=== PATIENT | female | born 1970 | race African-American/Black ===

== ENCOUNTER 2019-08-23 17:53 | Emergency (ER) | payer BC ==
--- NOTE | 2019-08-23 18:35 | ER Document Report ---
ED Medical Screen (RME) - General Chief Complaint: Rectal Pain Stated Complaint: RECTAL PAIN Time Seen by Provider: 08/23/19 18:33 Mode of Arrival: Ambulatory Information source: Patient Notes: 48-year-old female presented to ED for complaint of rectal pain. She states she had a colonoscopy yesterday because she had blood blood in her stools and hemorrhoids. She states they told her that she would be okay by this morning but she has taken ibuprofen with no relief to her rectal pain. She states Dr. Leiva did the colonoscopy yesterday. She states she has a history of removal of gallbladder C-sections and bronchitis. She states she has no other medical history. She states she does not have any bleeding from her stool that she knows of right now but she is on her menstrual cycle so she would be able to tell. I have greeted and performed a rapid initial assessment of this patient. A comprehensive ED assessment and evaluation of the patient, analysis of test results and completion of medical decision making process will be conducted by an additional ED providers. - Related Data Allergies/Adverse Reactions: No Known Allergies Allergy (Unverified 08/23/19 18:29) Physical Exam - Vital signs Vitals: Temp Pulse Resp BP Pulse Ox 98.7 F 110 H 18 186/118 H 98 08/23/19 17:59 08/23/19 17:59 08/23/19 17:59 08/23/19 17:59 08/23/19 17:59 Course - Vital Signs Vital signs: Temp Pulse Resp BP Pulse Ox 98.7 F 110 H 18 186/118 H 98 08/23/19 18:29 08/23/19 17:59 08/23/19 17:59 08/23/19 17:59 08/23/19 17:59
[2019-08-23 19:05] LABS: ABSOLUTE BASOPHILS # (AUTO) 0.1 10^3/uL (0.0-0.2); ABSOLUTE EOSINOPHILS # (AUTO) 0.2 10^3/uL (0.0-0.6); ABSOLUTE LYMPHOCYTES (AUTO) 2.3 10^3/uL (0.5-4.7); ABSOLUTE MONOCYTES (AUTO) 0.8 10^3/uL (0.1-1.4); ABSOLUTE NEUT (AUTO) 7.2 10^3/uL (1.7-8.2); BASOPHILS % (AUTO) 0.6 % (0-2); EOSINOPHILS % (AUTO) 1.8 % (0-6); HEMATOCRIT 38.1 % (36.0-47.0); HEMOGLOBIN 12.9 g/dL (12.0-15.5); LYMPHOCYTES % (AUTO) 21.7 % (13-45); MEAN CORPUSCULAR HEMOGLOBIN 26.2 pg (27.0-33.4); MEAN CORPUSCULAR VOLUME 77 fl (80-97); MONOCYTES % (AUTO) 7.3 % (3-13); PLATELET COUNT 311 10^3/uL (150-450); RED BLOOD COUNT 4.94 10^6/uL (3.72-5.28); RED CELL DISTRIBUTION WIDTH 14.7 % (11.5-14.0); SEGMENTED NEUTROPHILS % (AUTO) 68.6 % (42-78); TOTAL CELLS COUNTED % (AUTO) 100 %; WHITE BLOOD COUNT 10.5 10^3/uL (4.0-10.5)
[2019-08-23 19:28] LABS: ALBUMIN 4.5 g/dL (3.5-5.0); ALKALINE PHOSPHATASE 64 U/L (38-126); ANION GAP 8 (5-19); ASPARTATE AMINO TRANSFERASE 27 U/L (14-36); BILIRUBIN,TOTAL 0.4 mg/dL (0.2-1.3); BLOOD UREA NITROGEN 13 mg/dL (7-20); CARBON DIOXIDE 28 mmol/L (22-30); CHLORIDE 103 mmol/L (98-107); GLUCOSE 112 mg/dL (75-110); POTASSIUM 4.3 mmol/L (3.6-5.0); TOTAL PROTEIN 8.4 g/dL (6.3-8.2)
[2019-08-23] MEDS ORDERED: PROMETHAZINE HCL 25 MG TABLET PO ONE (20:27)
[2019-08-23] MEDS ORDERED: OXYCODONE-ACETAMINOPHEN 5-325 MG TABLET PO ONE (20:27)
--- NOTE | 2019-08-23 20:30 | ER Document Report ---
ED GI/ - General Chief Complaint: Rectal Pain Stated Complaint: RECTAL PAIN Time Seen by Provider: 08/23/19 18:33 Primary Care Provider: SHASHANK LEIVA MD [ACTIVE STAFF] - 08/25/19 Mode of Arrival: Ambulatory Notes: Patient is a 48-year-old female that comes emergency department with chief com plaint of rectal pain. She states that yesterday she had a colonoscopy with Dr. Leiva, she states that yesterday she was drowsy mainly from the sedation but today she started having rectal pain that was more noticeable, she has been taking ibuprofen during the day with minimal change. She states she is scared to have a bowel movement because of the pain. She states she had no difficulty completing the prep, she did have a colonoscopy because of a history of family colon cancer and patient having intermittent rectal bleeding. She does have the report with her that states she had hemorrhoids and diverticulosis noted but no other findings currently. She takes no daily medications, only reported medical history otherwise is cholecystectomy and C-sections. She denies fever, vomiting, abdominal pain, or any other complaints. - Related Data Allergies/Adverse Reactions: No Known Allergies Allergy (Unverified 08/23/19 18:29) Past Medical History - General Information source: Patient - Social History Smoking Status: Never Smoker Frequency of alcohol use: None Drug Abuse: None Lives with: Family Family History: Reviewed & Not Pertinent Patient has homicidal ideation: No Past Surgical History: Reports: Hx Section Review of Systems - Review of Systems Constitutional: No symptoms reported EENT: No symptoms reported Cardiovascular: No symptoms reported Respiratory: No symptoms reported Gastrointestinal: See HPI Genitourinary: No symptoms reported Female Genitourinary: No symptoms reported Musculoskeletal: No symptoms reported Skin: No symptoms reported Hematologic/Lymphatic: No symptoms reported Neurological/Psychological: No symptoms reported Physical Exam - Vital signs Vitals: Temp Pulse Resp BP Pulse Ox 98.7 F 110 H 18 186/118 H 98 08/23/19 17:59 08/23/19 17:59 08/23/19 17:59 08/23/19 17:59 08/23/19 17:59 - Notes Notes: GENERAL: Alert, interacts well. No acute distress. HEAD: Normocephalic, atraumatic. EYES: Pupils equal, round, and reactive to light. Extraocular movements intact. ENT: Oral mucosa moist, tongue midline. Oropharynx unremarkable. Airway patent. Nares patent, sinuses non-tender, ear canals unremarkable, TM's intact. NECK: Full range of motion. Supple. Trachea midline. No lymphadenopathy. LUNGS: Clear to auscultation bilaterally, no wheezes, rales, or rhonchi. No respiratory distress. Non-tender chest wall. HEART: Regular rate and rhythm. No murmur ABDOMEN: Soft, non-tender. Non-distended. Bowel sounds present in all 4 quadrants. GENITOURINARY: Deferred RECTAL: Large external hemorrhoid at the 10 o'clock position and smaller one at approximately the 8 o'clock position. However these are not clearly thrombosed, there is no abnormal erythema, purulent or bloody drainage, and the rectal examination is unremarkable otherwise. Exam performed with Ayla ALCANTAR at bedside. EXTREMITIES: Moves all 4 extremities spontaneously. No edema, normal radial and dorsalis pedis pulses bilaterally. No cyanosis. BACK: no cervical, thoracic, lumbar midline tenderness. No saddle anesthesia, normal distal neurovascular exam. Moves all extremities in full range of motion. NEUROLOGICAL: Alert and oriented x3. Normal speech. Cranial nerves II through XII grossly intact. Strength 5/5 in all extremities. PSYCH: Normal affect, normal mood. SKIN: Warm, dry, normal turgor. No rashes or lesions noted. Course - Re-evaluation Re-evalutation: Labs from triage reviewed and unremarkable. Patient is well-appearing except has trouble sitting and is reporting rectal pain. She has obvious external hemorrhoids which are enlarged although there is no thrombosed hemorrhoid, signs of infection, or current bleeding. Patient reports this is worse now than previously, she does have imaging of her hemorrhoids with her and her report and these do appear to be significantly larger. However there is not appear to be any other complication. Patient was provided with symptom management, she has close gastroenterology follow-up, discussed treatment, expectations, follow-up, return precautions. Patient states appreciation and agreement. Patient much more comfortable after she was medicated here, vital signs much improved, stable and well-appearing at time of discharge. - Vital Signs Vital signs: Temp Pulse Resp BP Pulse Ox 98.4 F 76 18 128/66 H 100 08/23/19 21:35 08/23/19 21:35 08/23/19 21:35 08/23/19 21:35 08/23/19 21:35 - Laboratory Result Diagrams: 08/23/19 18:40 08/23/19 18:40 Laboratory results interpreted by me: 08/23/19 08/23/19 18:40 18:40 MCV 77 L MCH 26.2 L RDW 14.7 H Glucose 112 H Total Protein 8.4 H Discharge - Discharge Clinical Impression: Rectal pain, External hemorrhoid Condition: Stable Disposition: HOME, SELF-CARE Additional Instructions: You have a large external hemorrhoid, your evaluation and exam are reassuring otherwise. Use a suppository, avoid any straining on the toilet, you can take the pain medication but make sure you take the stool softener as well or you may become constipated and this will worsen. You can take the stool softener once or twice daily. 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 Return for any concerning symptoms including developing severe swelling, worsening pain, fever, vomiting, or any other concerning symptoms. Prescriptions: Phenylephrine HCl [Anusol Suppository] 1 supp.rect [place] BID #28 supp.rect Polyethylene Glycol 3350 [Miralax Powder 17 gm/Packet] 1 packet PO DAILY PRN #1 pkg PRN Reason: Oxycodone HCl/Acetaminophen [Percocet 5-325 mg Tablet] 1 - 2 tab PO TID PRN #12 tablet PRN Reason: Forms: Return to Work Referrals: SHASHANK LEIVA MD [ACTIVE STAFF] - 08/25/19
[2019-08-23] MEDS ORDERED: HYDROCODONE/ACETAMINOPHEN 5-325 MG (6 TAB/ER DISP) PO PRN (21:08)
[2019-08-23 21:51] VITALS: BP 128/66
== END 2019-08-23 21:35 | disposition home or self-care (01) ==
LOC: ER 17:53
DX: K64.4 Residual hemorrhoidal skin tags (principal); K62.89 Other specified diseases of anus and rectum; Z98.890 Other specified postprocedural states; Z80.0 Family history of malignant neoplasm of digestive organs
CPT/HCPCS: 36415; 80053; 85025; 99283